=== PATIENT | male | born 1975 | race Caucasian/White ===

== ENCOUNTER 2022-08-21 19:17 | Emergency (ER) | payer MEDICAID ==
[~2022-08-21] VITALS: Ht 188 cm; Wt 79.5 kg
[2022-08-21 19:33] VITALS: BP 140/95
[2022-08-21] MEDS ORDERED: TETanus/Pertussis (Acell)/Diphther VAC/PF (Tdap-Adult) 0.5ml syringe IMVAC ONE (21:35)
== END 2022-08-21 22:10 ==
LOC: ER 19:18
DX: S01.01XA Laceration without foreign body of scalp, initial encounter (principal); F17.200 Nicotine dependence, unspecified, uncomplicated; X58.XXXA Exposure to other specified factors, initial encounter; Y93.89 Activity, other specified; Y92.89 Other specified places as the place of occurrence of the external cause; Y99.8 Other external cause status
CPT/HCPCS: 12001; 90471; 90715; 99283